=== PATIENT | female | born 1990 | race African-American/Black ===

== ENCOUNTER 2019-03-01 14:39 | Emergency (ER) | payer BC ==
[2019-03-01 15:29] LABS: Bilirubin Negative (Negative); Blood, Urine Large (Negative); Glucose, Urine (Dipstick) Negative (Negative); Leukocyte Negative (Negative); Nitrite Negative (Negative); Protein, Urine (Dipstick) 30 mg/dL (Neg-Trace); Urobilinogen 0.2 mg/dL (Less than 2)
[2019-03-01 15:32] LABS: Clarity Cloudy (Clear)
[2019-03-01 15:36] LABS: WBC/HPF 0-3 HPF (0-3)
[2019-03-01 15:37] LABS: #Eosinphils 0.2 thou/uL (0.0-0.7); #Lymphocytes 2.9 thou/uL (1.20-3.40); #Monocytes 0.6 thou/uL (0.11-0.59); #Neutrophils 4.6 thou/uL (1.40-6.50); %Basophils 0.4 % (0.0-1.0); %Eosinophils 1.9 % (0.0-10.0); %Lymphocytes 34.3 % (21.0-51.0); %Monocytes 7.6 % (0.0-10.0); %Neutrophils 55.8 % (42.0-75.0); Mean Corpuscular Hemoglobin 31.3 pg (27.0-31.0); Mean Platelet Volume 6.7 fL (7.4-10.4); Platelet Count 302 thou/uL (130-400); RBC Distribution Width 14.5 % (11.5-14.5); Red Blood Cell (RBC) Count 4.48 mill/uL (4.20-5.40); White Blood Cell (WBC) Count 8.3 thou/uL (4.8-10.8)
[2019-03-01 15:37] LABS: Bacteria/HPF 2+ HPF (None Seen)
--- NOTE | 2019-03-01 17:17 | ULT ---
PELVIC ULTRASOUND TRANSABDOMINAL AND ENDOVAGINAL Indications: Vaginal bleeding with . FINDINGS: There is a tiny hypoechoic circumscribed focus in the endometrial cavity which may represent an early gestational sac. Measurements recorded at 0.93 cm consistent with a 5 week 5 day gestational age. A yolk sac is not identified. A pole is not identified. Both ovaries appear unremarkable. Color doppler and spectral analysis demonstrates blood flow to both ovaries. IMPRESSION: Tiny gestational sac in the endometrial cavity is identified. This could represent a pseudogestationa l sac and therefore ectopic is not excluded. Viability is not confirmed. Recommend serial H CG levels and follow up ultrasound as indicated. POS: FELICIA
[2019-03-03 00:50] LABS: Chlamydia by PCR Not Detected (NotDetected); GC by PCR Not Detected (NotDetected)
== END 2019-03-01 18:20 | disposition home or self-care (01) ==
LOC: ERS 14:39
DX: O23.11 Infections of bladder in pregnancy, first trimester (principal); O20.0 Threatened abortion; Z3A.01 Less than 8 weeks gestation of pregnancy
CPT/HCPCS: 36415; 76856; 81003; 81015; 84702; 85025; 86900; 86901; 87086; 87480; 87491; 87510; 87591; 87660

== ENCOUNTER 2019-03-03 07:53 | Emergency (ER) | payer BC ==
--- NOTE | 2019-03-03 08:52 | ULT ---
Pelvic sonogram transabdominal and transvaginal imaging with duplex evaluation HISTORY: Pelvic pain. Evaluate for ectopic . Pelvic bleeding. FINDINGS: Urinary bladder is decompressed. Uterus measures up to 8.6 cm length on today's exam. Endom etrium is 1.1 cm thickness without gestational sac evident. Physiologic amount of free fluid within the cul-de-sac. Each ovary has normal appearance with good color and spectral Doppler flow. IMPRESSION: No evidence of intrauterine gestation. Mild endometrial thickening.
== END 2019-03-03 09:23 | disposition home or self-care (01) ==
LOC: ERS 07:53
DX: O03.4 Incomplete spontaneous abortion without complication (principal)
CPT/HCPCS: 36415; 76856; 84702

== ENCOUNTER 2019-07-13 03:07 | Emergency (ER) | payer BC ==
[2019-07-13] MEDS ORDERED: Acetaminophen 500 MG TAB ONE (03:29)
[2019-07-13] MEDS ORDERED: Heparin 25,000 units/D5W 0 ML ONE (04:24)
--- NOTE | 2019-07-13 07:57 | ULT ---
PELVIC ULTRASOUND: COMPARISON: None. HISTORY: Pelvic pain and bilateral flank pain. Positive test. TECHNIQUE: Multiplanar, art scale, and color Doppler images were obtained in a transabdominal and transvaginal pelvic ultrasound. Spectral analysis of the Doppler waveforms of the ovaries was performed. FINDINGS: There is an intrauterine gestational sac. This contains a pole and yolk sac. [place]-rump lengt h of the pole is 0.60 cm which estimates gestational age of 6 weeks and 3 days. A heart rate is detected at 124 b.p.m. No free fluid is seen in the pelvis. both ovaries are normal in size and appear to be demonstrate no rmal internal flow. IMPRESSION: Live intrauterine with estimated age of 6 weeks 3 days. POS: EAA
== END 2019-07-13 07:06 | disposition home or self-care (01) ==
LOC: ERS 03:07
DX: O99.89 Other specified diseases and conditions complicating pregnancy, childbirth and the puerperium (principal); R10.9 Unspecified abdominal pain; Z3A.01 Less than 8 weeks gestation of pregnancy
CPT/HCPCS: 36415; 76856; 84702; J1644

== ENCOUNTER 2023-08-19 21:46 | Emergency (ER) | payer BC, SELFPAY ==
[2023-08-20] MEDS ORDERED: Ketorolac Tromethamine 30 MG (1 mL) VIAL ONE (00:08)
[2023-08-20] MEDS ORDERED: predniSONE 20 MG TAB ONE (00:08)
[2023-08-20] MEDS ORDERED: Bicillin LA 1.2 MILLION UNITS/2 ML SYRINGE ONE (01:00)
== END 2023-08-20 01:30 | disposition home or self-care (01) ==
LOC: ERS 21:46
DX: J02.9 Acute pharyngitis, unspecified (principal); R59.0 Localized enlarged lymph nodes
CPT/HCPCS: 87081; 87430; 96372; 99283; J0561; J1885; J7512

== ENCOUNTER 2024-01-07 14:29 | Emergency (ER) | payer BC ==
[2024-01-07 15:33] LABS: #Basophils 0.03 10x3/uL (0.0-0.2); %Basophils 0.4 % (0.0-1.0); %Eosinophils 0.9 % (0.0-10.0); %Lymphocytes 27.2 % (21.0-51.0); %Monocytes 8.2 % (0.0-10.0); %Neutrophils 62.9 % (42.0-75.0); Hematocrit 38.5 % (36.0-47.0); Hemoglobin 12.3 g/dL (12.0-16.0); Mean Corpuscular HGB CONC 31.9 g/dL (32.0-36.0); Mean Corpuscular Hemoglobin 29.9 pg (27.0-31.0); Mean Corpuscular Volume 93.4 fL (78.0-98.0); Platelet Count 333 10x3/uL (130-400); RBC Distribution Width 14.9 % (11.5-14.5); Red Blood Cell (RBC) Count 4.12 mill/uL (4.20-5.40)
[2024-01-07 15:48] LABS: ALT (SGPT) 15 U/L (8-55); AST (SGOT) 15 U/L (5-34); Albumin 3.5 g/dL (3.5-5.0); Alkaline Phosphatase 39 U/L (40-110); Anion Gap 11 mmol/L (10-20); BUN (Urea Nitrogen) 13 mg/dL (7.0-18.7); Bilirubin, Total 0.3 mg/dL (0.2-1.2); Calc. Creatinine Clearance 0 mL/min (70-130); Calcium 9.1 mg/dL (7.8-10.44); Carbon Dioxide 23 mmol/L (22-29); Chloride 109 mmol/L (98-107); Estimated GFR 97; Globulin 4.2 g/dL (2.4-3.5); Glucose 102 mg/dL (70-105); Lipase 33 U/L (8-78); Potassium 4.3 mmol/L (3.5-5.1); Protein, Total 7.7 g/dL (6.0-8.3); Sodium 139 mmol/L (136-145)
[2024-01-07] MEDS ORDERED: Lidocaine Viscous Sol 2% 15 ml UD Cup ONE (15:56)
[2024-01-07] MEDS ORDERED: Milk Of Magnesia 30 ML UDCUP ONE (15:56)
[2024-01-07] MEDS ORDERED: Famotidine/PF 20 mg/2ml Vial ONE (15:56)
[2024-01-07] MEDS ORDERED: Pantoprazole 40 MG VIAL ONE (15:56)
[2024-01-07 16:39] LABS: Bacteria/HPF 1+ HPF (None Seen); Bilirubin Negative (Negative); Blood, Urine Negative (Negative); CAUTI Indications for Culture Pelvic or flank pain; Clarity Turbid (Clear); Glucose, Urine (Dipstick) Normal (Negative); Ketone, Urine Negative (Negative); Leukocyte 250 Leu/uL (Negative); Nitrite 2+ (Negative); Protein, Urine (Dipstick) 10 mg/dL (Neg-Trace); RBC/HPF 0-3 HPF (0-3); Specific Gravity, Urine 1.019 (1.002-1.036); Urobilinogen Normal mg/dL (Less than 2); WBC/HPF 21-50 HPF (0-3)
[2024-01-07 16:40] LABS: Urine Culture Reflex Yes Yes
[2024-01-07] MEDS ORDERED: cefTRIAXone (ROCEPHIN) 1 GM VIAL ONE (17:58)
[2024-01-07] MEDS ORDERED: Sodium Chloride 0.9% 100 ML ONE (17:58)
[2024-01-07] MEDS ORDERED: Ketorolac Tromethamine 30 MG (1 mL) VIAL ONE (17:58)
== END 2024-01-07 18:40 | disposition home or self-care (01) ==
LOC: ERS 14:29
DX: N10 Acute pyelonephritis (principal)
CPT/HCPCS: 80053; 81001; 83690; 85025; 87077; 87086; 87186; 96365; 96375; J0696; J1885; J2470; J3490